=== PATIENT | female | born 1945 | race Caucasian/White ===

== ENCOUNTER 2021-09-18 09:06 | Day surgery (SDC) | payer MEDICARE, OTHER, SELFPAY ==
[2021-09-14 10:45] VITALS: BMI 35.5
--- NOTE | 2021-09-17 09:32 | P.CONAN_ITS ---
Documented by User: Tiffany Ozuna NP 09/17/21 09:33 HPI - Anesthesia Eval Consult details Narrative: 76yo F for Colonoscopy [facility] Past Medical History Medical History Arthritis Elevated cholesterol Hx of herpes simplex infection MGUS (monoclonal gammopathy of unknown significance) Migraines Surgical History Surgical History History of bilateral carpal tunnel release Hx of colonoscopy Hx of hysterectomy Social History Social History Patient Tobacco Use Status: Never used Tobacco Are you DNR?: No Advance Directives: No Advance Directives Information Provided: Yes Recently lost weight without trying: No Nutrition Risks: No Nutritional Risk Meds Allergies Allergy/AdvReac Type Severity Reaction Status Date / Time No Known Allergies Allergy Verified 09/17/21 10:56 Home Medications Medication Instructions Recorded Confirmed Last Taken Type propranolol 120 mg 240 mg PO DAILY 09/14/21 09/14/21 Unknown History capsule,extended release 24 hr (Inderal XL) simvastatin 20 mg tablet 20 mg PO BEDTIME 09/14/21 09/14/21 Unknown History Exam Exam Date and Time: September 17, 2021 0932 Height,Weight and Vital Signs: Height 5 ft Weight 82.554 kg Assessment and Plan Assessment Anesthesia Assessment: Chart Reviewed Documented by User: Jodie Guo MD 09/18/21 10:57 [facility] Active Problems Active Problems: Migraines. Imitrex prn Increased BMI Past Medical History Medical History Arthritis Elevated cholesterol Hx of herpes simplex infection MGUS (monoclonal gammopathy of unknown significance) Migraines Family History Family history of problems with anesthesia: No Surgical History Surgical History History of bilateral carpal tunnel release Hx of colonoscopy Hx of hysterectomy History of Problems with Anesthesia: No Social History Social History Patient Tobacco Use Status: Never used Tobacco Are you DNR?: No Advance Directives: No Advance Directives Information Provided: Yes Recently lost weight without trying: No Nutrition Risks: No Nutritional Risk Meds Allergies Allergy/AdvReac Type Severity Reaction Status Date / Time No Known Allergies Allergy Verified 09/17/21 10:56 Home Medications Medication Instructions Recorded Confirmed Last Taken Type propranolol 120 mg 240 mg PO DAILY 09/14/21 09/14/21 Unknown History capsule,extended release 24 hr (Inderal XL) simvastatin 20 mg tablet 20 mg PO BEDTIME 09/14/21 09/14/21 Unknown History Exam Height,Weight and Vital Signs: Height 5 ft Weight 82.554 kg Vital Signs Temp Pulse Resp BP Pulse Ox 09/18/21 10:23 99.1 F 66 18 124/53 L 99 Airway Mallampati Class: II TM Dist: >3cm Neck ROM: Full Loose/Missing/Broken Teeth: Yes (2 missing) Heart: RRR Lungs: CTAB Assessment and Plan Assessment Anesthesia Assessment: Anesthesia Plan Discussed Final Anesthetic Review Family History of Problems with Anesthesia: No History of Problems with Anesthesia: No NPO: Yes ASA Class: II Final Preanesthetic Review: No Changes in Pt Med Stat, Meds/Allgs Chart Reviewed, Consent Obtained/Reviewed and Anes Risks/Benef Reviewed Patient Risk: Low Procedure Risk: Low Assessment/Block/Sedation in SS: Assess/Block/Sedation-SS Anesthetic Plan Anesthetic Plan: MAC: Disposition: Standard PACU
[2021-09-18 10:23] VITALS: BP 124/53; PULSE 66; RESP 18; TEMP 37.3; O2SAT 99; BMI 35.5
[2021-09-18] MEDS: Lactated Ringers 1,000 ML 100 ML IVCONT (10:28)
--- NOTE | 2021-09-18 11:03 | MHC.SHP ---
Pre-Procedural Eval Section A Date of Service: 09/18/21 The patient is an INPATIENT: No Changes since office visit: No Cold of Flu in the past 2 weeks, No New Medical Problems, No Changes in Medication and No Patient answered all questions The History & Physical has been completed within 30 days and I have reviewed it.: Yes Section B Chief Complaint: screening Allergies: Allergies Allergy/AdvReac Type Severity Reaction Status Date / Time No Known Allergies Allergy Verified 09/17/21 10:56 Plan I have reviewed the history and physical and performed a pertinent physical examination on my patient. No changes have occurred unless specified.
[2021-09-18 11:32] VITALS: BP 93/48; PULSE 73; RESP 16; TEMP 36.4; O2SAT 95
--- NOTE | 2021-09-18 11:34 | PM.OP ---
Brief Operative Note Date of Service: 09/18/21 Pre-op diagnosis: screening Post-op diagnosis: same (colon polyps) Procedure: colonoscopy Surgeon: Braeden Rodríguez Anesthesia: MAC Was an Pleating Supervisor used for this Procedure?: No Estimated blood loss (mL): 0 Pathology: other (polyps x3) Condition: stable Disposition: PACU
[2021-09-18 11:47] VITALS: BP 100/60; PULSE 72; RESP 16; TEMP 36.4; O2SAT 96
--- NOTE | 2021-09-18 12:35 | OP_ITS ---
SURGEON: Braeden Rodríguez MD INDICATIONS: Colon cancer screening and prior history of adenomatous colon polyps. PREOPERATIVE DIAGNOSIS: POSTOPERATIVE DIAGNOSIS: PROCEDURE PERFORMED: Colonoscopy to the terminal ileum with snare polypectomy. ESTIMATED BLOOD LOSS: COMPLICATIONS: ANESTHESIA: ASSISTANTS: SPECIMENS: MEDICATIONS: Monitored anesthesia care. DESCRIPTION OF PROCEDURE: History and physical performed. The risks and benefits of the procedure were explained to the patient. Informed consent was obtained. The patient was placed in left lateral decubitus position. A digital rectal exam was performed and was found to be normal. The Olympus pediatric video colonoscope was introduced into the rectum and advanced to the cecum without difficulty. The cecum was identified by transillumination, palpation, and identification of ileocecal valve. Examination was performed and the scope was removed. She tolerated the procedure well and was returned to recovery area in stable condition. FINDINGS: The terminal ileum was normal. The visualized colonic mucosa was normal. The quality of the prep was good. Three polyps were identified. All measured less than 10 mm and were removed with a snare. These were located at 80, 60, and 40 cm. No other polyps were seen. Retroflexed examination was normal. IMPRESSION: Colon polyps. RECOMMENDATION: Follow up the biopsy results. MD GEORGE Multani/VANESSA / [id number] MTDD
== END 2021-09-18 12:10 | disposition home or self-care (01) ==
PROVIDERS: PCP Internal Medicine Geriatric Medicine; Visit Provider Internal Medicine Gastroenterology
PROC: 0DJD8ZZ Inspection of Lower Intestinal Tract, Via Natural or Artificial Opening Endoscopic (ICD-10-PCS; CPT 45378; principal; 2021-09-18 10:50)
DX: Z12.11 Encounter for screening for malignant neoplasm of colon (principal); Z86.010 Personal history of colon polyps; D12.4 Benign neoplasm of descending colon; D12.5 Benign neoplasm of sigmoid colon; D47.2 Monoclonal gammopathy; E78.00 Pure hypercholesterolemia, unspecified; B00.9 Herpesviral infection, unspecified; Z79.899 Other long term (current) drug therapy
CPT/HCPCS: 45385; 88305